=== PATIENT | female | born 1985 | race Caucasian/White ===

== ENCOUNTER 2016-05-10 11:37 | Emergency (ER) | payer BC ==
[2016-05-10] MEDS ORDERED: ASPIRIN 81 MG TABLET, CHEWABLE PO ONE (12:03)
--- NOTE | 2016-05-10 12:05 | ER Document Report ---
ED Medical Screen (RME) - General Stated Complaint: CHEST PAIN Mode of Arrival: Ambulatory Information source: Patient Notes: 30 y/o F presents to ED c/o left upper chest pain since this am. Describes pain as dull ache that radiates to left upper arm and back. Denies fever, sob, n/v, or diaphoresis. I have greeted and performed a rapid initial assessment of this patient. A comprehensive ED assessment and evaluation of the patient, analysis of test results and completion of the medical decision making process will be conducted by additional ED providers. Physical Exam - Vital signs Vitals: Temp Pulse Resp BP Pulse Ox 98.1 F 90 20 121/71 97 05/10/16 12:02 05/10/16 12:02 05/10/16 12:02 05/10/16 12:02 05/10/16 12:02 - General General appearance: Appears well, Alert In distress: None - Respiratory Respiratory status: No respiratory distress Breath sounds: Normal Course - Vital Signs Vital signs: Temp Pulse Resp BP Pulse Ox 98.1 F 90 20 121/71 97 05/10/16 12:02 05/10/16 12:02 05/10/16 12:02 05/10/16 12:02 05/10/16 12:02
[2016-05-10 13:21] LABS: ABSOLUTE EOSINOPHILS # (AUTO) 0.1 10^3/uL (0.0-0.6); ABSOLUTE LYMPHOCYTES (AUTO) 2.4 10^3/uL (0.5-4.7); ABSOLUTE MONOCYTES (AUTO) 0.4 10^3/uL (0.1-1.4); ABSOLUTE NEUT (AUTO) 5.1 10^3/uL (1.7-8.2); BASOPHILS % (AUTO) 0.6 % (0-2); EOSINOPHILS % (AUTO) 1.4 % (0-6); HEMATOCRIT 41.8 % (36.0-47.0); HEMOGLOBIN 13.9 g/dL (12.0-15.5); HGB HCT DIFFERENCE -0.1; LYMPHOCYTES % (AUTO) 29.6 % (13-45); MEAN CORPUSCULAR HGB CONC 33.2 g/dL (32.0-36.0); MEAN CORPUSCULAR VOLUME 90 fl (80-97); MONOCYTES % (AUTO) 5.2 % (3-13); RED BLOOD COUNT 4.63 10^6/uL (3.72-5.28); RED CELL DISTRIBUTION WIDTH 14.2 % (11.5-14.0); SEGMENTED NEUTROPHILS % (AUTO) 63.2 % (42-78); WHITE BLOOD COUNT 8.1 10^3/uL (4.0-10.5)
[2016-05-10 13:27] LABS: ALANINE AMINOTRANSFERASE 43 U/L (9-52); ALBUMIN 3.8 g/dL (3.5-5.0); ALKALINE PHOSPHATASE 124 U/L (38-126); ANION GAP 11 (5-19); ASPARTATE AMINO TRANSFERASE 29 U/L (14-36); BILIRUBIN,TOTAL 0.5 mg/dL (0.2-1.3); BLOOD UREA NITROGEN 11 mg/dL (7-20); CALCIUM 9.6 mg/dL (8.4-10.2); CARBON DIOXIDE 25 mmol/L (22-30); CHLORIDE 106 mmol/L (98-107); CREATINE KINASE 170 U/L (30-135); CREATININE RESULT 0.72 mg/dL (0.52-1.25); GLUCOSE 81 mg/dL (75-110); POTASSIUM 3.8 mmol/L (3.6-5.0); TOTAL PROTEIN 7.3 g/dL (6.3-8.2)
[2016-05-10 13:31] LABS: APPEARANCE,URINE SLIGHTLY-CLOUDY; BILIRUBIN,URINE NEGATIVE (NEGATIVE); GLUCOSE, URINE NEGATIVE (NEGATIVE); KETONES,URINE NEGATIVE (NEGATIVE); LEUKOCYTE ESTERASE,URINE NEGATIVE (NEGATIVE); NITRITE,URINE NEGATIVE (NEGATIVE); PROTEIN,URINE NEGATIVE (NEGATIVE); URINE SPECIFIC GRAVITY 1.006; UROBILINOGEN,URINE NEGATIVE mg/dL (<2.0)
[2016-05-10 13:39] LABS: CREATINE KINASE MB 0.83 ng/mL (<4.55)
[2016-05-10 13:41] LABS: TROPONIN I < 0.012 ng/mL
--- NOTE | 2016-05-10 19:15 | ER Document Report ---
ED General - General Chief Complaint: Chest Pain Stated Complaint: CHEST PAIN Mode of Arrival: Ambulatory Information source: Patient Notes: Patient presents to the emergency department with complaints of left-sided chest pain dull throbbing with intermittent sharp pains to the left side of her chest that radiated to her left shoulder. She reports symptoms started at 6:30 this a.m. She denies trauma. She denies other symptoms such as fever vomiting diarrhea diaphoresis. Denies history of cardiac disease. Denies history of high blood pressure. Denies family history of cardiac disease. Patient reports that she moved some furniture around this past weekend, light items such as night stands. She denies recent exercise. She denies control or recent trip. Denies history of PE or DVT. Reports the chest pain hurts more when she takes a deep breath. Pt is overweight and smokes socially. Pt also works in the [employer] business, working on taxes right now. Reports that the dull achy chest pain is now a 1-2/ 5 TRAVEL OUTSIDE OF THE [place] IN LAST 30 DAYS: No - HPI Onset: This morning Onset/Duration: Persistent, Waxing and waning Quality of pain: Achy, Sharp, Throbbing Severity: Moderate Pain Level: 3 Associated symptoms: None Exacerbated by: Deep breathing Relieved by: Denies Similar symptoms previously: No Recently seen / treated by doctor: No - Related Data Allergies/Adverse Reactions: Penicillins Allergy (Verified 05/10/16 12:04) Sulfa (Sulfonamide Antibiotics) Allergy (Verified 05/10/16 12:04) Past Medical History - General Information source: Patient Last Menstrual Period: irregular - Social History Smoking Status: Current Every Day Smoker Cigarette use (# per day): Yes - socially Chew tobacco use (# tins/day): No Frequency of alcohol use: None Drug Abuse: None Occupation: finances Family History: Reviewed & Not Pertinent. denies: CAD, DM, Hypertension Patient has suicidal ideation: No Patient has homicidal ideation: No - Medical History Medical History: Negative Renal/ Medical History: Denies: Hx Peritoneal Dialysis Past Surgical History: Reports: Hx Section Review of Systems - Review of Systems Notes: Review HPI for review of systems., All other systems negative Physical Exam - Vital signs Vitals: Temp Pulse Resp BP Pulse Ox 98.1 F 90 20 121/71 97 05/10/16 12:02 05/10/16 12:02 05/10/16 12:02 05/10/16 12:02 05/10/16 12:02 - Notes Notes: PHYSICAL EXAMINATION: GENERAL: Well-appearing and in no acute distress nontoxic looking HEAD: Atraumatic, normocephalic. EYES: Pupils equal round and reactive to light, extraocular movements intact, sclera anicteric, conjunctiva are normal. ENT: TM WNL, nares patent, oropharynx clear without exudates. Moist mucous membranes. NECK: Normal range of motion, supple without lymphadenopathy LUNGS: CTAB and equal. No wheezes rales or rhonchi. HEART: Regular rate and rhythm without murmurs , Chest wall ttp ABDOMEN: Soft, no tenderness. No guarding, no rebound BACK: no c/o back pain EXTREMITIES: Normal range of motion, no pitting edema. No cyanosis. NEUROLOGICAL: Cranial nerves grossly intact. Normal sensory/motor PSYCH: Normal mood, normal affect. SKIN: Warm, Dry, normal turgor, no rashes or lesions noted Course - Re-evaluation Re-evalutation: 05/10/16 19:11 Patient instructed on all results. Patient reports her dull achy chest pain is decreased now. We discussed risk of cardiac disease. I have consulted the attending provider dr durand, per [facility] guidelines- agrees on discharge Presentation of chest pain in an otherwise well-appearing patient. Low clinical suspicion for ACS given the clinical history, exam, EKG without ST elevation or depressions, and negative initial troponin. Heart score less than or equal to 3. PE also seems unlikely given the clinical history, absence of tachycardia or dyspnea. Patient's PERC criteria is negative. Chest x-ray without evidence of pneumothorax or pneumonia. No widened mediastinum. Inferior dissection also seems unlikely given history, symmetric pulses, chest x -ray and vitals. Given the reassuring evaluation, will plan for discharge home at this time with return precautions and follow-up recommendations. Patient has been instructed to return if symptoms worsen or change in any way. HEART score-1 History -NONE ECG- ST Age- 30 Risk Factors- Overweight and smokes Troponin- neg 0.012 Total- 1 Chest pain in a patient without evidence of cardiac or other serious etiology during the workup today. I discussed with patient that based on age, risk factors and emergency department testing, the likelihood that her symptoms are related to her heart is very low (estimated risk of heart attack or over the next 30 days of less than 1% ). The patient demonstrates decision-making capacity and has verbalized an understanding of these risks to me. Based on this, the patient was instructed to follow-up up as an outpatient. Usual chest pain return precautions reviewed. Patient verbalized understanding. 05/10/16 19:38 Second EKG sinus rhythm 05/10/16 19:39 - Vital Signs Vital signs: Temp Pulse Resp BP Pulse Ox 98.1 F 87 20 134/92 H 97 05/10/16 12:02 05/10/16 19:36 05/10/16 12:02 05/10/16 19:36 05/10/16 19:36 - Laboratory Result Diagrams: 05/10/16 12:45 05/10/16 12:45 Laboratory results interpreted by me: 05/10/16 05/10/16 12:45 12:45 RDW 14.2 H Creatine Kinase 170 H - Diagnostic Test Radiology reviewed: Image reviewed, Reports reviewed - IMPRESSION: NO SIGNIFICANT RADIOGRAPHIC FINDING IN THE CHEST Discharge - Discharge Clinical Impression: chest pain of unclear cause, Elevated blood pressure reading Condition: Stable Disposition: HOME, SELF-CARE Instructions: Chest Pain of Unclear Cause ([facility]), Aspirin (Cardiac) ([facility]) Additional Instructions: *You have been evaluated for chest pain of unclear cause *Take aspirin daily *Follow up with a primary care provider within 3 days for recheck *Return to ED for worsening condition, changes, needs, increased chest pain, concerns, difficulty breathing Forms: Elevated Blood Pressure, Smoking Cessation Education, Return to Work Referrals: NANCY SMITH DO [Primary Care Provider] - Follow up in 3-5 days
[2016-05-10 19:37] VITALS: BP 134/92
--- NOTE | 2016-05-10 20:12 | EKG REPORT ---
SEVERITY:- NORMAL ECG - SINUS RHYTHM : Confirmed by: Danya Hood 10-May-2016 20:11:32
--- NOTE | 2016-05-10 20:12 | EKG REPORT ---
SEVERITY:- OTHERWISE NORMAL ECG - SINUS TACHYCARDIA : Confirmed by: Danya Hood 10-May-2016 20:11:46
== END 2016-05-10 19:42 | disposition home or self-care (01) ==
LOC: ER 11:37
DX: R07.9 Chest pain, unspecified (principal); R03.0 Elevated blood-pressure reading, without diagnosis of hypertension; M25.512 Pain in left shoulder; F17.210 Nicotine dependence, cigarettes, uncomplicated; Z88.0 Allergy status to penicillin; Z88.2 Allergy status to sulfonamides
CPT/HCPCS: 36415; 71020; 80053; 81001; 82550; 82553; 84484; 84703; 85025; 93005; 93010; 99285